=== PATIENT | female | born 1960 ===

== ENCOUNTER 2016-08-25 18:01 | Emergency (ER) | payer OTHER ==
[2016-08-25 18:20] VITALS: BP 128/82; PULSE 82; RESP 20; TEMP 97.4; O2SAT 100
--- NOTE | 2016-08-25 19:20 | C.PDOC ---
History Of Present Illness Patient complains of pain to the bottom of left foot for few months. She also complains of chronic pain to her neck and shoulders. Denies any injury, numbness , weakness, swelling, calf pain or fever. Time Seen by Provider: 08/25/16 19:09 Chief Complaint (Nursing): Lower Extremity Problem/Injury History Per: Patient History/Exam Limitations: no limitations Onset/Duration Of Symptoms: Persistent (months) Current Symptoms Are (Timing): Still Present Past Medical History Reviewed: Historical Data, Nursing Documentation, Vital Signs Vital Signs: Last Vital Signs Temp 97.4 F L 08/25/16 18:19 Pulse 82 08/25/16 18:19 Resp 20 08/25/16 18:19 BP 128/82 08/25/16 18:19 Pulse Ox 100 08/25/16 19:23 - Medical History PMH: Depression, Diabetes, Gastritis, HTN, Hypercholesterolemia Family History: States: Unknown Family Hx - Social History Hx Tobacco Use: No Hx Alcohol Use: No Hx Substance Use: No - Immunization History Hx Tetanus Toxoid Vaccination: No Hx Influenza Vaccination: No Hx Pneumococcal Vaccination: No Review Of Systems Constitutional: Negative for: Fever Cardiovascular: Negative for: Chest Pain, Palpitations Respiratory: Negative for: Cough, Shortness of Breath Gastrointestinal: Negative for: Abdominal Pain Musculoskeletal: Positive for: Neck Pain, Shoulder Pain, Foot Pain Physical Exam - Physical Exam Appears: Non-toxic, No Acute Distress Skin: Warm, Dry, No Rash, Other (tender callus to distal plantar surface of left foot, no erythema, swelling or foreign body) Head: Atraumatic, Normacephalic Eye(s): bilateral: Normal Inspection Neck: Normal ROM, No Midline Cervical Tenderness, No Paracervical Tenderness, No Step Off Deformity Chest: Symmetrical Extremity: Normal ROM, No Tenderness, No Deformity, No Swelling Neurological/Psych: Oriented x3, Normal Speech ED Course And Treatment O2 Sat by Pulse Oximetry: 100 Medical Decision Making Medical Decision Making: Callus to left foot, tender. no signs of cellulitis, gout or foreign body chronic neck and shoulder pain. exam shows FAROM, no joint swelling or crepitus Motrin PO given Recommend using callus cushion. Will prescribe callus remover Disposition Counseled Patient/Family Regarding: Diagnosis, Need For Followup, Rx Given - Disposition Referrals: Podiatry Clinic [Outside] Disposition: HOME/ ROUTINE Disposition Time: 19:17 Condition: STABLE Additional Instructions: Follow up with podiatry and your primary physician Prescriptions: Meloxicam [Mobic] 15 mg PO DAILY #30 tab Salicylic Acid [[place] & Callus Remover] 15 ml TP BID #1 liquid Instructions: Diabetic Foot Care (DC) - POA Present On Arrival: None - Clinical Impression Clinical Impression: Callus of foot, Arthralgia - PA / [employer] / Resident Statement MD/DO has reviewed & agrees with the documentation as recorded.
== END 2016-08-25 19:33 | disposition home or self-care (01) ==
LOC: C.ER 18:01
DX: L84 Corns and callosities (principal); M25.572 Pain in left ankle and joints of left foot